=== PATIENT | male | born 1950 | race Hispanic/Latino ===

== ENCOUNTER 2017-08-03 11:08 | Day surgery (SDC) | payer OTHER ==
[2017-08-01 10:14] LABS: Urine Appearance CLEAR; Urine Bilirubin NEGATIVE (NEG); Urine Blood NEGATIVE (NEG); Urine Color YELLOW; Urine Glucose NEGATIVE (NEG); Urine Protein NEGATIVE (NEG); Urine Urobilinogen 0.2 mg/dL (0.2-1.0)
[2017-08-01 10:16] LABS: Urine Microscopic Reflex NO UMIC
[2017-08-01 10:20] LABS: Protime INR 1.02
[2017-08-01 10:27] LABS: Absolute Lymphocytes (CBC) 1.5 K/uL (0.7-4.9); Absolute Monocytes 0.7 K/uL (0.1-1.3); Absolute Neutrophil 5.1 K/uL (1.8-8.0); Basophils % 0.5 % (0-1.3); Eosinophils % 3.1 % (0-4.4); Hematocrit 41.7 % (39.6-49.0); Lymphocytes % 20.4 % (15.3-44.8); MCH 28.6 pg (27.0-35.0); MCV 85.4 fL (80-100); MPV 8.6 fL (7.6-11.3); RBC Red Blood Cell Count 4.88 M/uL (4.33-5.43)
[2017-08-01 10:30] LABS: Potassium 4.1 mEq/L (3.6-5.0)
--- NOTE | 2017-08-01 10:35 | RAD REPORT ---
EXAM DESCRIPTION: RADOP - Outpt Chest Pa/Lat (2 Views) - 08/01/2017 9:57 am CLINICAL HISTORY: Hypertension, pelvic pain. COMPARISON: None. FINDINGS: The lungs are clear. The heart is normal in size. No displaced fractures. IMPRESSION: No acute or concerning finding suspected.
--- NOTE | 2017-08-01 15:20 | EKG ---
Test Date: 2017-08-01 Test Time: 09:43:55 [employer]: [facility] MEASUREMENT RESULTS: Intervals: Rate: 56 WA: 162 QRSD: 98 QT: 398 QTc: 384 [place]: P: 25 WA: 162 QRS: 59 T: 46 INTERPRETIVE STATEMENTS: Sinus bradycardia Minimal voltage criteria for LVH, may be normal variant Borderline ECG No previous ECG available for comparison Electronically Signed On 08-01-17 15:19:06 CDT by Nathen Harley
[2017-08-03] MEDS: Ringers Lactate 1,000 ML IV ONE ×2 (11:06→13:06)
[2017-08-03] MEDS ORDERED: GENTAMICIN 80 MG/100 ML BAG 80 MG/100 ML BAG IV ONE (12:26)
[2017-08-03] MEDS ORDERED: LIDOCAINE 2% MPF 5 ML VIAL ONE (13:00)
[2017-08-03] MEDS ORDERED: PROPOFOL 200 MG/20 ML VIAL IV ONE (13:00)
[2017-08-03] MEDS ORDERED: MIDAZOLAM HCL 2 MG/2 ML INJ ONE (13:00)
[2017-08-03] MEDS ORDERED: FENTANYL CITR 100 MCG/2 ML ONE (13:00)
[2017-08-03] MEDS ORDERED: GLYCOPYRROLATE 0.2 MG/ML SYR ONE (13:49)
[2017-08-03] MEDS ORDERED: EPHEDRINE SULF 50 MG/5 ML SYR ONE (13:53)
[2017-08-03] MEDS ORDERED: KETOROLAC 30 MG/ML INJ ONE (13:58)
[2017-08-03] MEDS ORDERED: Ringers Lactate 1,000 ML IV ONE (14:21)
[2017-08-03] MEDS: MEPERIDINE HCL 25 MG/0.5 ML ONE ×2 (14:40→14:50)
[2017-08-03] MEDS ORDERED: OXYBUTYNIN CHLORIDE 5 MG TAB ONE (16:22)
[2017-08-03] MEDS ORDERED: HYDROCODONE/APAP 5/325 MG TAB ONE (16:22)
[2017-08-03] MEDS ORDERED: NA CHLORIDE 0.9% 1,000 ML ONE (17:16)
== END 2017-08-03 17:38 | disposition home or self-care (01) ==
LOC: OR 11:08
PROVIDERS: ATTEND Urology
PROC: 0T7D8DZ Dilation of Urethra with Intraluminal Device, Via Natural or Artificial Opening Endoscopic (ICD-10-PCS; principal; 2017-08-03 12:30)
DX: N40.1 Benign prostatic hyperplasia with lower urinary tract symptoms (principal); R39.12 Poor urinary stream; N42.9 Disorder of prostate, unspecified; I10 Essential (primary) hypertension; K21.9 Gastro-esophageal reflux disease without esophagitis; Z87.891 Personal history of nicotine dependence; Z80.42 Family history of malignant neoplasm of prostate; Z80.9 Family history of malignant neoplasm, unspecified; Z83.3 Family history of diabetes mellitus; Z82.49 Family history of ischemic heart disease and other diseases of the circulatory system
CPT/HCPCS: 36415; 52441; 52442 ×3; 71046; 80048; 81003; 83970; 85025; 85610; 85730; 86850; 86900; 86901; 87086; 87088; 93005; J1580; J2175; J2250; J3010; J7030